=== PATIENT | female | born 1955 | race Caucasian/White ===

== ENCOUNTER 2023-12-15 06:21 | Inpatient (IN) | payer MEDICARE, OTHER, SELFPAY ==
[2023-12-10 08:38] VITALS: BMI 35.5
[2023-12-10 09:05] LABS: % Basophils 0.7 % (0-2); % Eosinophils 2.1 % (0-6); % Immature Granulocytes 0.4 % (0-0.5); % Lymphocytes 43.4 % (20.5-51.1); % Monocytes 7.3 % (1.7-9.3); % Neutrophils 46.1 % (42.2-75.2); Absolute Basophils 0.1 10^3/uL (0-0.2); Absolute Eosinophils 0.2 10^3/uL (0-0.7); Absolute Lymphocytes 3.2 10^3/uL (1.2-3.4); Absolute Monocytes 0.5 10^3/uL (0.1-0.6); Absolute Neutrophils 3.3 10^3/uL (1.4-6.5); Hematocrit 45.3 % (37.0-47.0); Hemoglobin 15.4 g/dL (12.0-16.0); Mean Corpuscular Hgb 31.4 pg (27.0-31.0); Mean Corpuscular Volume 92.4 fL (81.0-99.0); Mean Platelet Volume 9.4 fL (7.4-10.4); Nucleated Red Blood Cells % 0 %; Platelet Count 359 10^3/uL (130-400); Red Cell Dist. Width 13.4 % (11.5-14.5); White Blood Cell Count 7.3 10^3/uL (4.8-10.8)
[2023-12-10 09:12] LABS: INR 1.83; PT 21.3 Sec (11.4-14.6)
[2023-12-10 09:13] LABS: APTT 41.7 Sec (23.4-35.0)
[2023-12-10 12:20] LABS: Blood Urea Nitrogen 17 mg/dl (7-17); Calcium 9.7 mg/dl (8.4-10.2); Carbon Dioxide 25 mmol/L (22-30); Chloride 106 mmol/L (98-107); Estimated Creatinine Clearance 71 ml/min; Glucose 102 mg/dl (70-99); Potassium 4.8 mmol/L (3.5-5.1); Sodium 141 mmol/L (135-145); eGFR > 60.00
--- NOTE | 2023-12-10 12:53 | PTCARENOTE ---
Patients 12/09 INR 1.83, PTT 41.7- Olga @ Dr. Billings office notified
[2023-12-15] VITALS (12 sets, daily range): BP systolic 77–151; BP diastolic 46–141; BMI 35.3; BMI 35.5
--- NOTE | 2023-12-15 07:07 | PTCARENOTE ---
Dr Harden, anesthesiologist, at pt bedside speaking to pt.
--- NOTE | 2023-12-15 07:13 | HP.FOC2 ---
Focused History & Physical
Chief Complaint
HPI:
Chief Complaint: Asymptomatic carotid stenosis
HPI / Indication for Planned Procedure: 68-year-old female here for planned procedure today with Dr. Cueva. Patient remains asymptomatic. Agreeable to proceed with planned CEA. No change in health since last office visit. At baseline health today
Relevant Past Medical History: Other (Afib, RA)
Relevant Social History: Tobacco Use
Relevant Family History: Positive for (heart disease, HTN)
Relevant Past Surgical History: Positive for (tonsillectomy, tubal ligation, cataracts)
Review of Systems
Review of Pertinent Systems: All Systems Negative
Medication
See Medication form for detailed medications: Yes
Medication List (including Herbals & OTC):
acetaminophen 650 mg tablet,extended release (Tylenol Arthritis Pain) 1,300 mg PO Q8H Pain 12/05/23
flecainide 50 mg tablet 75 mg PO BID 12/05/23
levothyroxine 75 mcg tablet 75 mcg PO DAILY 12/05/23
metoprolol succinate 25 mg tablet,extended release 24 hr 25 mg PO BID 12/05/23
multivitamin with minerals-folic acid 80 mcg chewable tablet (Centrum Adult 50 Plus) 1 tab PO DAILY 12/05/23
pravastatin 40 mg tablet 40 mg PO DAILY 12/05/23
rivaroxaban 20 mg tablet (Xarelto) 20 mg PO DAILY 12/05/23
Nature's Bounty Calcium, Magnesium, Zinc, With Vitamin D3 1 tab PO DAILY 12/15/23
Medications Reviewed: Yes
Allergies and Reactions
Patient has Allergies: No
Noted Allergies and Reactions:
Allergy/AdvReac Type Severity Reaction Status Date / Time
No Known Allergies Allergy Verified 12/15/23 06:33
Pertinent Physical Exam
All Other Systems: Negative
Head/Neck: Normal
Lungs: Normal
Heart: Normal
Abdomen: Normal
Extremities: Normal
Neurological: Normal
Diagnosis / Assessment
Carotid stenosis
Here for planned CEA with Dr. Cueva
Plan / Procedure
68-year-old female here for planned left CEA with Dr. Cueva
Anesthesia/Sedation to be done by Anesthesia Provider: Yes
--- NOTE | 2023-12-15 07:13 | PTCARENOTE ---
Neurophysiologist at pt bedside speaking to pt.
[2023-12-15] MEDS: BACTROBAN NASAL 1 GRAM NASAL (07:21)
[2023-12-15] MEDS: PERIDEX 0.12% ORAL RINSE 15 ML PO (07:21)
[2023-12-15] MEDS: NSS 500 IV (07:21)
--- NOTE | 2023-12-15 07:30 | PTCARENOTE ---
Pt's brother and sister in law at pt bedside.
--- NOTE | 2023-12-15 08:06 | PTCARENOTE ---
Dr Cueva at pt bedside speaking to pt and pt's family.
--- NOTE | 2023-12-15 08:28 | W.SUR.PREOP ---
Pre-Operative Surgical Note
-
I have examined this patient prior to the performance of the scheduled procedure.
The patient's condition is unchanged from the time of the current History and
Physical and the patient is able to undergo the scheduled procedure.
[2023-12-15 09:38] LABS: ACT-LR - POC 331 Seconds (116-155)
[2023-12-15 10:33] LABS: ACT-LR - POC 253 Seconds (116-155)
--- NOTE | 2023-12-15 10:53 | OR.RPT ---
Operative Report
Operative Report
Date of Operation: 12/15/2023
Pre Op Diagnosis: High-grade stenosis left carotid artery asymptomatic
Post Op Diagnosis: High-grade stenosis left carotid artery asymptomatic
Procedure: LEFT carotid endarterectomy with patch angioplasty using bovine pericardium
Surgeon: Zac Cueva III, MD
Assembler Sandal Parts: Dona Kahn MD PGY-8
Anesthesia: General
Complications: None
History and Indications for Procedure: 68-year-old female with asymptomatic high-grade stenosis involving the left carotid artery
Procedure in Detail: Isabell Tracey was correctly identified and placed supine on the operating table. After adequate induction of anesthesia the left neck was positioned, prepped and draped in the usual sterile fashion. Preoperative antibiotics were
administered. A timeout procedure was performed with the nursing and anesthesia staff confirming the patients identity as well as the nature and laterality of the procedure.
The carotid bifurcation was marked with ultrasound at the beginning of the case. The incision was planned accordingly. An incision was made along the anterior border of the left sternocleidomastoid muscle. Electrocautery was used to divide the
subcutaneous tissue and platysma. The carotid sheath was entered with sharp dissection. The internal jugular vein was retracted laterally. The vagus nerve was oriented anteriorly and the carotid sheath and was identified and protected throughout the
case. The common carotid artery was identified at the base of this incision and carefully encircled with a vessel loop. The patient was systemically heparinized. The dissection was continued distally towards the carotid bifurcation. The facial vein
was skeletonized, ligated and divided between ties and clips. The proximal external carotid artery was encircled with a vessel loop. The distal internal carotid artery was encircled with a vessel loop at a soft spot on the artery beyond the plaque.
The hypoglossal nerve was identified and protected.
The internal vessel loop was secured followed by the common and external. An arteriotomy was made on the distal common carotid artery with an 11-blade. This was extended proximally and distally with Beltran scissors. The arteriotomy was extended
distally through the plaque to an area of normal appearing internal carotid artery. The distal vessel loop was replaced with a short tip hockey-stick type vascular clamp. An endarterectomy was performed with a Holden elevator in the standard
fashion. The proximal extent of the plaque was transected with scissors. The distal end of the plaque in the internal carotid artery feathered very nicely with no distal intimal flap. The plaque extending into the external carotid artery was
everted. Once the plaque was fully removed the endarterectomy plane was irrigated with heparinized saline and any loose fronds of tissue were removed. A pre-cut piece of bovine pericardium was sewn in place using a running 6-0 Prolene suture. Prior
to the completion of the patch the common carotid was allowed to forward bleed and the external was allowed to back bleed. The area under the patch was irrigated with heparinized saline to remove any potential thrombus or debris. The anastomosis was
completed.
The external vessel loop was released first, followed by the common and then the internal. There was an excellent pulse in the distal internal carotid artery. An excellent quality Doppler signal in the distal internal carotid artery was also
confirmed. The patch suture line was closely inspected for hemostasis and was achieved. Protamine was administered. Hemostasis was achieved in the wound bed. The wound was irrigated with saline solution.
The wound was then closed in layers. Sterile dressings were applied. The patient awoke from anesthesia with no immediate neuro deficits and was taken to the PACU in stable condition.
Attestation: I was present and responsible for the entire procedure
Signed:
Zac Cueva III, MD
[facility] Vascular Surgery
[phone] (cell)
[2023-12-15 11:36] LABS: Hematocrit 40.2 % (37.0-47.0); Hemoglobin 13.7 g/dL (12.0-16.0); Mean Corp Hgb Conc. 34.1 g/dL (33.0-37.0); Mean Corpuscular Hgb 31.7 pg (27.0-31.0); Mean Corpuscular Volume 93.1 fL (81.0-99.0); Mean Platelet Volume 9.8 fL (7.4-10.4); Platelet Count 310 10^3/uL (130-400); Red Blood Cell Count 4.32 10^6/uL (4.20-5.40); Red Cell Dist. Width 13.5 % (11.5-14.5); White Blood Cell Count 12.9 10^3/uL (4.8-10.8)
[2023-12-15] MEDS: DILAUDID 0.5 MG IV ×3 (11:38→12:38)
[2023-12-15 11:45] LABS: Blood Urea Nitrogen 16 mg/dl (7-17); Calcium 8.3 mg/dl (8.4-10.2); Carbon Dioxide 23 mmol/L (22-30); Chloride 109 mmol/L (98-107); Estimated Creatinine Clearance 71 ml/min; Glucose 133 mg/dl (70-99); Potassium 4.5 mmol/L (3.5-5.1); Sodium 141 mmol/L (135-145); eGFR > 60.00
--- NOTE | 2023-12-15 12:27 | TRANSFER ---
Patient transferred to ICU, bedside and phone report to KEENA. Patient stable, reports severe pain in neck. Neuro checks wnl checked with Keena in ICU. Osorio Cueto RN BSN.
[2023-12-15] MEDS: NSS 1000 IV ×2 (12:40→22:29)
--- NOTE | 2023-12-15 13:38 | PTCARENOTE ---
1220-Received pt from PACU via bed.
Pt is awake alert.Conversation is appropriate.No dysarthria noted.JAMAL 3mm.No droop noted.+5/5 ZHANG.Pt is anxious, frequently changing her position.c/o left neck pain and headache.Received Dilaudid for pain.SB noted.Right A Line zeroed.IVF
infusing. breath sounds throughout.O2 3l NC.POX 96%Initially c/o nausea which has resolved.Tolerating ice chips.No BM.No emesis.No void.Bladder scanned 94 ml.Left CEA site intact with surgical adhesive.Slight ecchymosis.No drainage
noted.Pt's brother and HERNAN at bedside.Plan of care discussed.
--- NOTE | 2023-12-15 13:44 | CON.INTV ---
Consultation
Consultation Request
Date/Time Consultation Requested: 12/15/2023
Date/Time Consultation Performed: 12/15/2023
Requesting Provider: Dr. Cueva
Performing Provider: Dr. Kyler Boswell
Reason for Consultation: Postoperative ICU care
Medical History
-
History of Present Illness:
68-year-old woman with past medical history significant for atrial fibrillation, rheumatoid arthritis was found to have left carotid artery stenosis. She was deemed candidate for revascularization.
Underwent left carotic endarterectomy on 12/15/2023 without complications. Currently in the critical care unit. Doing well.
Denies stridor.
Pain is controlled
Denies shortness of breath.
Past Medical History
Past Medical History: Other (See assessment and plan)
Social History
Tobacco: Smoker
Alcohol: None
Drug: None
Personal:
Family History
Family History: Reviewed & Not Pertinent
Allergies / Home Medications
Allergies
Allergy/AdvReac Type Severity Reaction Status Date / Time
No Known Allergies Allergy Verified 12/15/23 06:33
Home Medications
�Medication �Instructions �Recorded �Confirmed �Last Taken �Type
acetaminophen 650 mg 1,300 mg PO Q8H Pain 12/05/23 12/15/23 3 Days Ago History
tablet,extended release (Tylenol ~12/12/23
Arthritis Pain)
flecainide 50 mg tablet 75 mg PO BID 12/05/23 12/15/23 12/14/23 19:00 History
levothyroxine 75 mcg tablet 75 mcg PO DAILY 12/05/23 12/15/23 12/15/23 04:30 History
metoprolol succinate 25 mg 25 mg PO BID 12/05/23 12/15/23 12/15/23 04:30 History
tablet,extended release 24 hr
multivitamin with minerals-folic 1 tab PO DAILY 12/05/23 12/15/23 12/13/23 10:00 History
acid 80 mcg chewable tablet
(Centrum Adult 50 Plus)
pravastatin 40 mg tablet 40 mg PO DAILY 12/05/23 12/15/23 12/14/23 10:00 History
rivaroxaban 20 mg tablet (Xarelto) 20 mg PO DAILY 12/05/23 12/15/23 12/12/23 History
Nature's Bounty Calcium, 1 tab PO DAILY 12/15/23 12/15/23 12/14/23 10:00 History
Magnesium, Zinc, With Vitamin D3
Review of Systems
-
History Source: Patient
All other systems: Negative unless noted
Vitals / Labs / Diagnostic Testing
Vital Signs
Temp Pulse Resp BP Pulse Ox
97.5 F 46 12 102/49 96
12/15/23 12:50 12/15/23 13:15 12/15/23 13:15 12/15/23 12:00 12/15/23 13:35
Lab Data
12/15/23 11:23
12/15/23 11:23
Diagnostic Testing:
Physical Exam
-
HEENT: Normocephalic and Other (Left cervical incision intact. No stridor on exam)
Cardiovascular: S1/S2
Respiratory: Clear and Non-Labored Respirations
GI: Soft and Non Distended
Neurology: Awake
General: Comfortable
Assessment
-
Status post left carotid endarterectomy 12/15/[address] Cueva
-
Conditions present prior admission:
Atrial fibrillation-on anticoagulation
Active smoker
Hypothyroidism
Hypercholesterolemia
Rheumatoid arthritis
Assessment and plan:
Postoperative surgical intensive care unit monitoring
Supplemental oxygen as needed
Incentive spirometry
Aspiration precautions
Nebulizers if needed-currently not bronchospastic
Chest x-ray 12/10/2023 reviewed-clear lungs
Left cervical incision intact without hematoma
Hoarse voice but no stridor on exam
Neuro and vascular checks per protocol
Vascular surgery following-correspondence and operative notes reviewed
Monitor blood pressure
arterial line in place
Allow for mild permissive hypertension
Cardene drip if needed
Follow hemoglobin
Follow blood sugars
Insulin supplementation as needed
Smoking cessation encouraged
DVT prophylaxis
Early nutrition
Early mobilization, per protocol
--- NOTE | 2023-12-15 14:04 | PTCARENOTE ---
As per Blood Bank Associate pt has + antibodies.Osorio Stuart NP made aware.
--- NOTE | 2023-12-15 16:00 | PTCARENOTE ---
Pt assessed.Pt states she feels better.Conversation is appropriate.Pain level better.Pt repositioning herself for comfort.
--- NOTE | 2023-12-15 19:50 | W.PN.UPDATE ---
Update Note
Progress Note Update
1929- Patient noted to have increased swelling and ecchymosis at incision site left carotid, with swelling extending to neck and jaw line. Facial asymmetry noted due to swelling, droop on right lip and swelling on the left side. Patient denies
headache, no weakness/numbness/tingling/aphasia/dysarthria, neurological exam otherwise unremarkable. Patient has been applying ice to incision site. Other IV sites and a-line site have noted swelling and ecchymosis as well. Incision site clean,
dry and intact, no bleeding noted. She feels good overall, heart rate 40-50s sinus bradycardia, and BP 120s. Dr. Cueva, vascular surgeon updated, will continue with neurological checks, agreed likely swelling from surgical site at this time.
--- NOTE | 2023-12-15 20:00 | PTCARENOTE ---
Addendum entered by Yaw Jimenez RN 12/16/23 01:13:
Dr. Cueva requested to be notified if condition changes or worsens.
Original Note:
Received pt via handoff. AAOx3, LEATHA JUSTIN, but during neuro assessment noticed a left sided facial droop when asked to smile. KRISTOFER Nguyễn made aware and Dr. Cueva was notified. A Fib on the monitor, sinus daria, palpable pulses w/ no edema. 95% on
RA, diminished throughout. Hypoactive bowel sounds in 4Q. Left carotid incision adhesive intact, slightly swollen but icepack in use. A Line zeroed, cuff slightly higher. NS gtt running see flowsheet. Call eduardo within reach, will continue to
monitor.
[2023-12-15] MEDS: TOPROL XL PO (20:18)
[2023-12-15] MEDS: HEPARIN 5000 UNITS SC (20:24)
[2023-12-15] MEDS: TAMBOCOR 75 MG PO (20:25)
[2023-12-16] VITALS (24 sets, daily range): BP systolic 95–157; BP diastolic 49–146; BMI 36.1
--- NOTE | 2023-12-16 | PTCARENOTE ---
Pt bladder scanned for 410mL and straight cath'd 400mL's. Neuro checks remain the same, will continue to monitor.
[2023-12-16] MEDS: ROXICODONE 5 MG PO (01:12)
--- NOTE | 2023-12-16 04:43 | PTCARENOTE ---
All systems reassessed. Pt able to void on the bed tran. Will continue to monitor.
[2023-12-16 04:50] LABS: INR 1.11; PT 14.1 Sec (11.4-14.6)
[2023-12-16 04:51] LABS: APTT 27.7 Sec (23.4-35.0)
[2023-12-16 04:54] LABS: Hematocrit 38.1 % (37.0-47.0); Hemoglobin 12.9 g/dL (12.0-16.0); Mean Corp Hgb Conc. 33.9 g/dL (33.0-37.0); Mean Corpuscular Hgb 31.3 pg (27.0-31.0); Mean Corpuscular Volume 92.5 fL (81.0-99.0); Mean Platelet Volume 10.2 fL (7.4-10.4); Platelet Count 316 10^3/uL (130-400); Red Blood Cell Count 4.12 10^6/uL (4.20-5.40); Red Cell Dist. Width 13.7 % (11.5-14.5); White Blood Cell Count 12.7 10^3/uL (4.8-10.8)
[2023-12-16 05:24] LABS: Blood Urea Nitrogen 15 mg/dl (7-17); Calcium 8.7 mg/dl (8.4-10.2); Carbon Dioxide 21 mmol/L (22-30); Chloride 109 mmol/L (98-107); Estimated Creatinine Clearance 81 ml/min; Glucose 118 mg/dl (70-99); Phosphorus 3.5 mg/dl (2.5-4.5); Potassium 4.7 mmol/L (3.5-5.1); Sodium 140 mmol/L (135-145); eGFR > 60.00
[2023-12-16] MEDS: SYNTHROID 75 MCG PO (05:42)
--- NOTE | 2023-12-16 07:45 | PTCARENOTE ---
Received pt @ change of shift. AAOx3, denies pain. Q1H neuro checks maintained -see flow sheet. L facial paralysis noted; R facial droop; otherwise face symmetry intact. Dr. Cueva to bedside to assess. SR w PVC's on monitor. SpO2 95% on RA.
+BS, abd soft/round obese. Stress inc of bladder. L neck incision approximated w surgical glue, WEB CONTENT SPECIALIST; ecchymotic/swollen @ incision site. R rad A-line in place; transduced, monitored, and calibrated; all ports patent and secured. #20 L hand w NSS @
80mL/hr infusing . Instructed on how to report care concerns and call eduardo in reach.
[2023-12-16] MEDS: THERAGRAN 1 TABLET PO (08:00)
[2023-12-16] MEDS: TAMBOCOR 75 MG PO ×2 (08:00→19:59)
[2023-12-16] MEDS: TOPROL XL 25 MG PO (08:01)
[2023-12-16] MEDS: HEPARIN 5000 UNITS SC ×2 (08:06→19:59)
[2023-12-16] MEDS: PRAVACHOL 40 MG PO (08:06)
--- NOTE | 2023-12-16 08:22 | W.PN.VS ---
Addendum entered and electronically signed by Zac Cueva III, MD 12/16/23 12:31:
This patient was seen and examined with KATHERYN Henley. I agree with the history and physical exam as well as the assessment and plan. I have the following additions:
Doing well overall
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
Otherwise she looks great and is progressing appropriately
Incision is clean and dry
Agree with the plan
Signed:
Zac Cueva III, MD
[facility] Vascular Surgery
[phone] (jkyl)
Original Note:
Today's Communication / Plan
-
Patient seen and examined at bedside with Dr. Zac Cueva III, below plan reviewed with attending.
Assessment/Plan
-
Assessment: 68-year-old female POD #1 left carotid endarterectomy
Plan:
Discontinue IV fluids
Discontinue arterial line
OOB to chair with progression ambulation as tolerated
Will hold home anticoagulation for 48 hours from today
Continue statin therapy
Possible discharge later this afternoon
Subjective Data
-
Date of Service: December 16, 2023
Patient seen and examined at bedside, offers no complaints. Denies headache, nausea, vomiting, chills, unilateral weakness, vision changes, dysarthria, dysphagia, or aphasia.
Objective Data
-
Vital Signs
Temp Pulse Resp BP Pulse Ox
97.1 F 60 15 137/74 94
12/16/23 04:00 12/16/23 08:01 12/16/23 06:15 12/16/23 08:01 12/16/23 06:15
Intake and Output
12/15/23 12/16/23 12/17/23
06:59 06:59 06:59
Intake Total 2233 / 2233
Output Total 500 / 500
Balance 1733 / 1733
Intake:
Oral fluids 523 / 523
IV fluids (Total) 1710 / 1710
NS 50 / 50
Nss 1,000 ml @ 80 mls/hr IV . 1660 / 1660
[id number] [facility] Rx#:[id number]
Output:
Urine, Voided 100 / 100
Straight cath output 400 / 400
Other:
Number of approximated MODERATE 1
amounts of urine
Number of approximated LARGE 1
amounts of urine
Lab Results
12/16/23 04:34
12/16/23 04:54
Calcium 8.7 mg/dl (8.4-10.2) 12/16/23 04:54
Phosphorus 3.5 mg/dl (2.5-4.5) 12/16/23 04:54
Magnesium 2.0 mg/dl (1.6-2.3) 12/16/23 04:54
Physical Exam
-
AAO x 3, no apparent distress resting bed comfortably
Scant left-sided facial droop noted, tongue midline, left neck surgical incision CDI scant area of edema at distal end of surgical incision, all soft, no evidence of hematoma, suture line well-approximated
No tachycardia
No dyspnea on room air
ABD rotund
Bilateral upper and lower extremities with equal strength and movement, patient can move to command and spontaneously
--- NOTE | 2023-12-16 11:31 | W.PN.INTV ---
Today's Communication / Plan
Recommendations
Continue postoperative care
Increase activity as tolerated
Arterial line to be discontinued
Discharge planning
Assessment
-
Status post left carotid endarterectomy 12/15/[address] Cueva
-
Conditions present prior admission:
Atrial fibrillation-on anticoagulation
Active smoker
Hypothyroidism
Hypercholesterolemia
Rheumatoid arthritis
Assessment and plan:
Postoperative day 1
Clinically doing well
Neurologically intact-unchanged
Incision without hematoma
No stridor on exam
Increase activity as tolerated.
Chest x-ray 12/10/2023 clear lungs
Tolerating diet.
Ambulated to the restroom
Neuro and vascular checks per protocol
Vascular surgery following-correspondence and operative notes reviewed
Possible discharge later today
Hemodynamically stable
Arterial line discontinue
Restart outpatient medication
Follow blood sugars
Insulin supplementation as needed
Smoking cessation encouraged patient states that she has undergone CT of the chest before with primary care.
Encouraged To follow-up with PCP for lung cancer screening.
She denies any significant pulmonary problems.
DVT prophylaxis
-
Continue postoperative care
Continue with neurochecks
Hopefully discharge planning later today
Subjective Dataa
Subjective Data
Date of Service:
Date of Service: December 16, 2023
Chief Complaint: [employer] Follow Up (Status post carotid endarterectomy)
Subjective:
Denies headache, blurry vision, weakness, stridor, speech problems.
Review of Systems
Cardiopulmonary: Dyspnea (n)
GI: Abdominal Pain (n) and Nausea (n)
Neuro: Headache (n), Dizziness (n), Numbness (n) and Weakness (n)
Objective Data
Data Reviewed
Vital Signs / I&O / Oxygen:
Vital Signs
Temp Pulse Resp BP Pulse Ox
97.9 F 60 15 137/74 95
12/16/23 08:00 12/16/23 08:01 12/16/23 06:15 12/16/23 08:01 12/16/23 09:12
Intake and Output
12/15/23 12/16/23 12/17/23
06:59 06:59 06:59
Intake Total 2233 / 2313 440 / 440
Output Total 500 / 500
Balance 1733 / 1813 440 / 440
SaO2 95
Nasal Cannula flow liters per 3
minute
Physical Exam
General: Comfortable
HEENT: Normocephalic
Cardiovascular: S1-S2
Respiratory: Clear and Non-Labored Respirations
GI: Soft and Non Distended
Neurology: Awake, Alert, Oriented, AO x 3 and No Motor Deficits
Skin: Warm
Labs/Micro/Reports
Lab Data
12/16/23 04:34
12/16/23 04:54
Laboratory Results
12/16/23
04:34
PT 14.1
INR 1.11
APTT 27.7
[2023-12-16] MEDS: ASPIR LOW (ENTERIC COATED) 81 MG PO (11:38)
--- NOTE | 2023-12-16 11:48 | PTCARENOTE ---
IVF's d/c'd per orders. R rad A-line d/c'd; pressure held until bleeding ceased; clean dressing applied. Pt. stand by assisted into BR and then OOB to chair @ 0830. Remains OOB to chair @ this time. Tolerating activity/meals. Flushed.
Afebrile. L facial paralysis/R facial droop remains unchanged from previous assessments. Call eduardo in reach.
--- NOTE | 2023-12-16 12:55 | W.PN.UPDATE ---
Update Note
Progress Note Update
Came to bedside to assess patient for possible discharge, when noticed facial redness/rash in a particular pattern on her face, appears to be a contact dermatitis, as there are clear markings were possible procedural tape could have been used for
prepping and draping. Patient denies shortness of breath, cough, chest tightness, itching, lightheadedness, or dizziness. Benadryl ordered in case of possible allergic reaction, Dr. Zac Cueva aware and agrees with plan additionally will keep
patient overnight for continued surveillance.
--- NOTE | 2023-12-16 13:14 | CM ---
Patient who is s/p left carotid endarterectomy.
Met with patient patient who resides alone in a 2 story townhouse with 4 AL & 5 stairs inside entrance.
The patient has been independent in ADLs and ambulation.
She has no DME, prior VN or SNF.
PCP - Alicia Smalls
Pharmacy - [facility]
The patient says her 2 brothers will assist her at home.
The patient says she feels ready for d/c home today. IMM completed.
Her borhter Nato or sister in law will provide transport home.
No CM d/c needs identified.
Plan home today.
[2023-12-16] MEDS: BENADRYL 25 MG PO (13:27)
--- NOTE | 2023-12-16 13:39 | PTCARENOTE ---
facial flushing worsening. Vascular Radha CAMPA, @ bedside, further orders placed for PO Benadryl- see MAR. Remains OOB to chair. Call jayce ornelas in reach.
--- NOTE | 2023-12-16 16:09 | W.PN.UPDATE ---
Update Note
Progress Note Update
Patient has developed a facial rash.
Possibly contact dermatitis/allergic reaction from draping in the OR. Not bronchospastic on exam. Hemodynamically stable.
Neurologically intact
Benadryl orally was given.
Patient is very anxious, will add low-dose Xanax as needed.
Will give him 1 dose of 4 mg of dexamethasone.
Will keep in the ICU for monitoring.
[2023-12-16] MEDS: DECADRON 4 MG IV (16:57)
[2023-12-16] MEDS: XANAX 0.25 MG PO (16:57)
--- NOTE | 2023-12-16 18:13 | PTCARENOTE ---
pt. facial flushing extending to upper chest area. Dr. Boswell aware and further orders received for IV steroid- see MAR. Pt. objectively anxious/restless prior to steroid admin. Assisted back into bed and attempted to decreased stimuli.
Elbert also aware and further orders received for PRN PO Xanax- see MAR. Emotional support given. Vascular SETTLEMENT PROCESSORRadha, notified of findings as well; in agreement w plan and pt. to stay overnight. Pt. informed on plan of care. Safe
environment maintained.
[2023-12-16] MEDS: BENADRYL 25 MG IV (20:00)
--- NOTE | 2023-12-16 20:00 | PTCARENOTE ---
Addendum entered by Yaw Jimenez RN 12/17/23 00:09:
Left facial drrop unchanged from previous night.
Original Note:
Received pt via handoff. Pt AAOx3, ZHANG, slighting anxious. Sinus daria with palpable pulses. 97% RA diminished bilaterally throughout. Hypoactive bowel sounds in all 4 quadrants. Urine clear yellow. Skin pale and warm. Left neck incision intact,
slightly swollen and ecchymotic. Pt able to ambulate to bathroom. Call eduardo at bedside. Will continue to monitor.
[2023-12-16] MEDS: TOPROL XL PO (20:45)
[2023-12-17] VITALS (13 sets, daily range): BP systolic 112–154; BP diastolic 42–138; BMI 35.9
--- NOTE | 2023-12-17 | PTCARENOTE ---
Neuro unchanged at midnight, will continue to monitor.
--- NOTE | 2023-12-17 04:00 | PTCARENOTE ---
All systems reassessed, labs drawn, left hand IV DC'd per patient request, neuro remains unchanged, will continue to monitor.
[2023-12-17] MEDS: SYNTHROID 75 MCG PO (04:09)
[2023-12-17 04:14] LABS: Hematocrit 41.8 % (37.0-47.0); Hemoglobin 14.2 g/dL (12.0-16.0); Mean Corpuscular Hgb 32.3 pg (27.0-31.0); Mean Platelet Volume 10.1 fL (7.4-10.4); Platelet Count 312 10^3/uL (130-400); Red Cell Dist. Width 13.6 % (11.5-14.5); White Blood Cell Count 11.1 10^3/uL (4.8-10.8)
[2023-12-17 04:39] LABS: Blood Urea Nitrogen 16 mg/dl (7-17); Calcium 9.8 mg/dl (8.4-10.2); Carbon Dioxide 27 mmol/L (22-30); Chloride 106 mmol/L (98-107); Estimated Creatinine Clearance 82 ml/min; Glucose 129 mg/dl (70-99); Potassium 5.1 mmol/L (3.5-5.1); Sodium 143 mmol/L (135-145); eGFR > 60.00
[2023-12-17] MEDS: PRAVACHOL 40 MG PO (07:34)
[2023-12-17] MEDS: ASPIR LOW (ENTERIC COATED) 81 MG PO (07:34)
[2023-12-17] MEDS: THERAGRAN 1 TABLET PO (07:34)
[2023-12-17] MEDS: HEPARIN 5000 UNITS SC (07:34)
[2023-12-17] MEDS: TAMBOCOR 75 MG PO (07:34)
[2023-12-17] MEDS: TOPROL XL 25 MG PO (07:36)
--- NOTE | 2023-12-17 08:30 | PTCARENOTE ---
Received pt awake and alert.Speech is appropriate.slight left facial droop at rest noted.+5/5 ZHANG noted.Gait is steady.Denies pain.SR noted.Peripheral IV removed.Coarse breath sounds throughout.POX 96% on RA.Appetite excellent.No BM.Voiding on
toilet.Left neck incision approximated with drainage.Slight ecchymosis noted.Discharge instructions given with verbal feedback of understanding.
--- NOTE | 2023-12-17 08:43 | W.PN.VS ---
Today's Communication / Plan
-
Patient seen and examined at bedside with Dr. Zac Cueva III, below plan reviewed with attending.
Assessment/Plan
-
Assessment: 68-year-old female POD #2 left carotid endarterectomy
Plan:
Discharge today
Subjective Data
-
Date of Service: December 17, 2023
Patient seen and examined at bedside, reports complete resolution of facial rash. Denies nausea, vomiting, fever, chills, SOB, ESPINOSA, and unilateral weakness. Tolerating PO diet. Reports eagerness for discharge to home.
Objective Data
-
Vital Signs
Temp Pulse Resp BP Pulse Ox
98.0 F 64 14 125/42 93
12/17/23 07:48 12/17/23 07:36 12/17/23 06:00 12/17/23 07:36 12/17/23 06:00
Intake and Output
12/16/23 12/17/23 12/18/23
06:59 06:59 06:59
Intake Total 2233 / 2313 800 / 800
Output Total 500 / 500
Balance 1733 / 1813 800 / 800
Intake:
Oral fluids 523 / 523 720 / 720
IV fluids (Total) 1710 / 1790 80 / 80
NS 50 / 50
Nss 1,000 ml @ 80 mls/hr IV . 1660 / 1740 80 / 80
[id number] MELISSA Rx#:[id number]
Output:
Urine, Voided 100 / 100
Straight cath output 400 / 400
Other:
Number of approximated MODERATE 1
amounts of urine
Number of approximated LARGE 1 1
amounts of urine
Lab Results
12/17/23 04:00
12/17/23 04:00
Calcium 9.8 mg/dl (8.4-10.2) 12/17/23 04:00
Phosphorus 3.5 mg/dl (2.5-4.5) 12/16/23 04:54
Magnesium 2.0 mg/dl (1.6-2.3) 12/16/23 04:54
Physical Exam
-
AAO x 3, no apparent distress resting bed comfortably
Facial rash completely resolved, scant left-sided facial droop noted, tongue midline, left neck surgical incision CDI scant area of edema at distal end of surgical incision, all soft, no evidence of hematoma, suture line well-approximated
No tachycardia
No dyspnea on room air
ABD rotund
Bilateral upper and lower extremities with equal strength and movement, patient can move to command and spontaneously
--- NOTE | 2023-12-17 09:05 | W.DS.TRANS ---
DC Summary - [employer]
-
Discharge Instructions:
Sleep Apnea Risk Intermediate
Discharge Diagnosis/Procedures Left Carotid endarterectomy
Diet As tolerated
Activity No strenuous activity
Driving Restrictions Not until seen by your Dr
Bathing Restrictions OK to Shower
Instructions:
Stand-Alone Forms: DC Instr - Vascular OR
Changes to Home Medications: Yes
Discharge Medications:
DC Medications w/original date entered in [facility]
acetaminophen 650 mg tablet,extended release (Tylenol Arthritis Pain) 1,300 mg PO Q8H Pain 12/05/23
flecainide 50 mg tablet 75 mg PO BID Heart Disease/Condition 12/05/23
levothyroxine 75 mcg tablet 75 mcg PO DAILY Thyroid 12/05/23
metoprolol succinate 25 mg tablet,extended release 24 hr 25 mg PO BID Heart Disease/Condition 12/05/23
multivitamin with minerals-folic acid 80 mcg chewable tablet (Centrum Adult 50 Plus) 1 tab PO DAILY Supplement 12/05/23
pravastatin 40 mg tablet 40 mg PO DAILY High Cholesterol 12/05/23
rivaroxaban 20 mg tablet (Xarelto) 20 mg PO DAILY Blood Clot Prevention/Tx 12/05/23
Nature's Bounty Calcium, Magnesium, Zinc, With Vitamin D3 1 tab PO DAILY Supplement 12/15/23
aspirin 81 mg tablet,delayed release 81 mg PO DAILY #90 tabs 12/17/23
Home Medication Changes
Added aspirin 81 mg daily
Pending Results: No
--- NOTE | 2023-12-17 09:13 | CM ---
CM following re: discharge planning.
Reviewed pt's chart, met with pt.
Discharge order noted. Pt is aware, expressed her agreement with discharge and pt stated her brother is coming to transport her home. IMM reviewed, placed on chart, pt has a copy.
Pt stated she is independent with functional ability and will not need after care VN services.
D/C plan: home no needs. brother to transport.
--- NOTE | 2023-12-17 11:12 | W.PN.INTV ---
Today's Communication / Plan
Recommendations
Discharge planning today
Sign off
Assessment
-
Status post left carotid endarterectomy 12/15/[address] Cueva
-
Conditions present prior admission:
Atrial fibrillation-on anticoagulation
Active smoker
Hypothyroidism
Hypercholesterolemia
Rheumatoid arthritis
Assessment and plan:
Postoperative day 2
Patient was not discharged yesterday due to developing into facial rash. Likely reaction to draping that occur in the operating room
Responded to Benadryl and 1 dose of dexamethasone
No stridor on exam
Not shortness of breath
Hemodynamically stable
Clear lung exam
Was able to ambulate with physical therapy
Neurologically intact
Neuro and vascular checks per protocol
Vascular surgery following-correspondence and operative notes reviewed
Possible discharge later today
Hemodynamically stable.
Continue outpatient medication
Follow blood sugars
Insulin supplementation as needed
Smoking cessation encouraged patient states that she has undergone CT of the chest before with primary care.
Encouraged To follow-up with PCP for lung cancer screening.
She denies any significant pulmonary problems.
DVT prophylaxis
-
Discussed with vascular surgery
Discharge today
Sign off
Subjective Dataa
Subjective Data
Date of Service:
Date of Service: December 17, 2023
Chief Complaint: [employer] Follow Up (Status post carotid endarterectomy)
Subjective:
Denies any complaint
Facial rash has dissipated
Denies any wheezing or shortness of breath
Review of Systems
Cardiopulmonary: Dyspnea (n)
Neuro: Headache (n) and Dizziness (n)
Objective Data
Data Reviewed
Vital Signs / I&O / Oxygen:
Vital Signs
Temp Pulse Resp BP Pulse Ox
98.0 F 66 16 114/66 94
12/17/23 07:48 12/17/23 10:00 12/17/23 10:00 12/17/23 09:00 12/17/23 09:30
Intake and Output
12/16/23 12/17/23 12/18/23
06:59 06:59 06:59
Intake Total 2233 / 2313 800 / 800 480 / 480
Output Total 500 / 500
Balance 1733 / 1813 800 / 800 480 / 480
SaO2 94
Nasal Cannula flow liters per 3
minute
Physical Exam
General: Comfortable
HEENT: Normocephalic
Cardiovascular: S1-S2
Respiratory: Clear and Non-Labored Respirations
GI: Soft and Non Distended
Neurology: Awake, Alert, Oriented, AO x 3 and No Motor Deficits
Skin: Warm and Other (Facial rash has resolved)
Labs/Micro/Reports
Lab Data
12/17/23 04:00
12/17/23 04:00
== END 2023-12-17 10:20 | disposition home or self-care (01) | DRG 39 ==
LOC: ICU 06:21
PROVIDERS: Nurse Practitioner; ADMITTING PHYSICIAN Surgery Vascular Surgery; CONSULT PHYSICIAN Internal Medicine Critical Care Medicine; FAMILY PHYSICIAN Internal Medicine
PROC: 03CL0ZZ Extirpation of Matter from Left Internal Carotid Artery, Open Approach (ICD-10-PCS; 2023-12-15)
PROC: 03UL0KZ Supplement Left Internal Carotid Artery with Nonautologous Tissue Substitute, Open Approach (ICD-10-PCS; 2023-12-15)
DX: I65.22 Occlusion and stenosis of left carotid artery (principal); M06.9 Rheumatoid arthritis, unspecified; E03.9 Hypothyroidism, unspecified; I48.91 Unspecified atrial fibrillation; E78.00 Pure hypercholesterolemia, unspecified; F17.210 Nicotine dependence, cigarettes, uncomplicated; R21 Rash and other nonspecific skin eruption; Z79.01 Long term (current) use of anticoagulants; Z79.890 Hormone replacement therapy; Z79.899 Other long term (current) drug therapy; Z82.49 Family history of ischemic heart disease and other diseases of the circulatory system
CPT/HCPCS: 88304; 88311; 35301; 36415; 71045; 71046; 80048; 83735; 84100; 85025; 85027; 85610; 85730; 86850; 86870; 86900; 86901; 86905; 93005; 95938; 95941; 95955

== ENCOUNTER → 2024-01-15 14:16 | Outpatient (REF) | payer MEDICARE, OTHER, SELFPAY | LOC: RAD 14:16 | PROVIDERS: ATTENDING PHYSICIAN Physician Assistant; FAMILY PHYSICIAN Internal Medicine; OTHER PHYSICIAN Surgery Vascular Surgery | DX: I65.22 Occlusion and stenosis of left carotid artery (principal) | CPT/HCPCS: 93880 ==

== ENCOUNTER → 2024-07-19 09:28 | Outpatient (REF) | payer MEDICARE, OTHER, SELFPAY | LOC: RAD 09:28 | PROVIDERS: ATTENDING PHYSICIAN Surgery Vascular Surgery; FAMILY PHYSICIAN Internal Medicine | DX: I65.22 Occlusion and stenosis of left carotid artery (principal) | CPT/HCPCS: 93880 ==

== ENCOUNTER → 2025-01-17 12:24 | Outpatient (REF) | payer MEDICARE, OTHER, SELFPAY | LOC: RAD 12:24 | PROVIDERS: ATTENDING PHYSICIAN Registered Nurse; FAMILY PHYSICIAN Internal Medicine | DX: I65.22 Occlusion and stenosis of left carotid artery (principal) | CPT/HCPCS: 93880 ==